=== PATIENT | male | born 1980 | race Caucasian/White ===

== ENCOUNTER 2018-12-28 17:04 | Emergency (ER) | payer OTHER ==
[~2018-12-28] VITALS: Ht 180.3 cm; Wt 93.0 kg
[2018-12-28] MEDS ORDERED: IV NORMAL SALINE 1,000ML 1,000 ML IV SCH (17:53)
--- NOTE | 2018-12-28 17:58 | PHYS DOC ---
Past History Past Medical History: No Pertinent History (ALEXANDRIACHRISTIANO ESPINOZA) Past Surgical History: Other Additional Past Surgical Histo: vasectomy (CARTLONRAYMONDCHRISTIANO DO) Smoking: Cigarettes, Less than 1pk/day Drug Use: None (BUCKALESHALUIS ANDRADEWILFRIDO ESPINOZA) Adult General Chief Complaint Chief Complaint: ABDOMINAL PAIN HPI HPI Patient is a 38-year-old male presents with lower abdominal pain and dysuria th at started yesterday. He has a maximum temperature of 100.7. No relief with home medicines. Pain radiates to both flanks. No blood in the urine. No increased urgency or frequency. He has had this 3 previous times without any definitive diagnosis being made. One time he was placed on antibiotics. Denies any urethral discharge. Denies any testicular pain.[] (CHRISTIANO IBRAHIM ) Review of Systems Review of Systems Constitutional: Denies fever or chills [] Eyes: Denies change in visual acuity, redness, or eye pain [] HENT: Denies nasal congestion or sore throat [] Respiratory: Denies cough or shortness of breath [] Cardiovascular: No additional information not addressed in HPI [] GI: Denies nausea, vomiting, bloody stools or diarrhea, see history of present illness [] : See history of present illness[] Musculoskeletal: Denies back pain or joint pain [] Integument: Denies rash or skin lesions [] Neurologic: Denies headache, focal weakness or sensory changes [] Endocrine: Denies polyuria or polydipsia [] All other systems were reviewed and found to be within normal limits, except as documented in this note. (CHRISTIANO IBRAHIM ) Physical Exam Physical Exam Constitutional: Well developed, well nourished, no acute distress, non-toxic appearance. [] HENT: Normocephalic, atraumatic, bilateral external ears normal, oropharynx moist, no oral exudates, nose normal. [] Eyes: PERRLA, EOMI, conjunctiva normal, no discharge. [] Neck: Normal range of motion, no tenderness, supple, no stridor. [] Cardiovascular:Heart rate regular rhythm, no murmur [] Lungs & Thorax: Bilateral breath sounds clear to auscultation [] Abdomen: Bowel sounds normal, soft, mild lower abdominal tenderness without any rebound, no guarding, no rigidity, able to sit up and lie back without any difficulty, no masses, no pulsatile masses. [] Skin: Warm, dry, no erythema, no rash. [] Back: No tenderness, no CVA tenderness. [] Extremities: No tenderness, no cyanosis, no clubbing, ROM intact, no edema. [] Neurologic: Alert and oriented X 3, normal motor function, normal sensory function, no focal deficits noted. [] Psychologic: Affect normal, judgement normal, mood normal. [] (ALEXANDRIA,CHRISTIANO DO) EKG EKG [] ([facility]) Radiology/Procedures Radiology/Procedures [] ([facility],CHRISTIANO DO) Impressions: PROCEDURE: CT ABD PELV W/ IV CONTRST ONLY CT abdomen pelvis with contrast dated 12/28/2018. No comparison available. CLINICAL INDICATION: Lower abdominal pain. TECHNIQUE: Per contiguous axial imaging of the abdomen and pelvis performed after the administration of 75 cc Omnipaque 300. One or more of the following individualized dose reduction techniques were utilized for this examination: 1. Automated exposure control 2. Adjustment of the mA and/or kV according to patient size 3. Use of iterative reconstruction technique. FINDINGS: Limited images of lung bases show dependent opacity in the lower lobes, likely atelectasis. Heart size within normal limits. No pleural or pericardial effusion. Liver and spleen are homogeneous. No focal hepatic mass. Biliary tree normal in caliber. Gallbladder unremarkable. Pancreas, adrenal glands and kidneys are unremarkable. No hydronephrosis. Unopacified GI tract normal in caliber and contour. Focal area of wall thickening involving the sigmoid colon with adjacent inflammatory changes. There are diverticula in the region. Possible tiny bubbles of gas along the inferior margin of the inflamed colon best seen on coronal images 20 through 22. No peridiverticular abscess. GI tract otherwise unremarkable. Appendix normal in caliber. Abdominal aorta normal in caliber. No lymphadenopathy. Images of pelvis show nondistended urinary bladder. Prostate gland normal in size. No free fluid. No pelvic adenopathy. Bone windows show no acute findings. Mild multilevel spondylosis. IMPRESSION: 1. Acute sigmoid diverticulitis. There are couple small bubbles of gas along the inferior margin of the inflamed colon which could represent early microperforation. No evidence of abscess. 2. Otherwise no significant abnormality. Electronically signed by: Raghu Paul MD (12/28/2018 6:56 PM) [facility] (ISIAH FONSECA Jr., DO) Course & Med Decision Making Course & Med Decision Making Pertinent Labs and Imaging studies reviewed. (See chart for details) ED course: Patient arrived, was placed in bed, and tolerated exam well. Patient care was endorsed to the nighttime physician at 1800 with laboratory testing and imaging pending.[] (CHRISTIANO IBRAHIM DO) Course & Med Decision Making Patient care was accepted from previous ER doctor at 6 PM. At the time of his departure, lab work and CT were pending. CT is returned with findings of acute sigmoid diverticulitis with suspected microperforation. I have discussed the case with Dr. Pelaez and he will accept patient care at [facility]. Surgery, with Dr. Mclean, has also been consulted on this patient. (ISIAH FONSECA Jr., DO) Dragon Disclaimer Dragon Disclaimer This electronic medical record was generated, in whole or in part, using a voice recognition dictation system. (CHRISTIANO IBRAHIM DO) Departure Departure: Impression: Primary Impression: Diverticulitis of large intestine with perforation Disposition: XFER SHT-TRM HOSP Condition: IMPROVED Referrals: PCP,NO (PCP) Problem Qualifiers Primary Impression: Diverticulitis of large intestine with perforation Diverticulitis bleeding: without bleeding Qualified Codes: K57.20 - Diverticulitis of large intestine with perforation and abscess without bleeding CHRISTIANO IBRAHIM DO Dec 28, 2018 17:58 ISIAH FONSECA Jr., DO Dec 28, 2018 19:08
[2018-12-28] MEDS ORDERED: KETOROLAC 30 MG/ML VIAL. IV ONE (18:00)
[2018-12-28 18:24] LABS: BASO # 0.1 x10^3/uL (0.0-0.2); BASO % 1 % (0-3); EOS # 0.2 x10^3/uL (0.0-0.7); EOS % 1 % (0-3); HEMATOCRIT 46.9 % (39.0-53.0); HEMOGLOBIN 16.2 g/dL (13.0-17.5); LYMPH % 13 % (24-48); MEAN CORPUSCULAR HEMOGLOBIN 31 pg (25-35); MEAN CORPUSCULAR HGB CONC 35 g/dL (31-37); MEAN CORPUSCULAR VOLUME 90 fL (79-100); MONO % 6 % (0-9); NEUT # 11.9 x10^3uL (1.8-7.7); NEUT % 79 % (31-73); PLATELET COUNT 294 x10^3/uL (140-400); RED BLOOD COUNT 5.24 x10^6/uL (4.30-5.70); RED CELL DISTRIBUTION WIDTH 12.6 % (11.5-14.5); WHITE BLOOD COUNT 15.1 x10^3/uL (4.0-11.0)
[2018-12-28] MEDS ORDERED: IOHEXOL 300 MG/ML 75 ML VIAL. IV ONE (18:30)
[2018-12-28 18:41] LABS: ALBUMIN 3.7 g/dL (3.4-5.0); ALBUMIN/GLOBULIN RATIO 0.9 (1.0-1.7); CREATININE 1.2 mg/dL (0.7-1.3); GFR 67.8; POTASSIUM 3.5 mmol/L (3.5-5.1); TOTAL BILIRUBIN 1.2 mg/dL (0.2-1.0); TOTAL PROTEIN 7.7 g/dL (6.4-8.2)
[2018-12-28 18:41] LABS: BILIRUBIN,URINE NEG (NEG); CLARITY,URINE CLEAR; COLOR,URINE YELLOW; GLUCOSE,URINE NEG (NEG); NITRITE,URINE NEG (NEG); RBC,URINE 0 /HPF (0-2); UROBILINOGEN,URINE 0.2 mg/dL (0.2 mg/dL)
[2018-12-28 18:42] LABS: BACTERIA,URINE 0 /HPF (0-FEW); WBC,URINE OCC /HPF (0-4)
--- NOTE | 2018-12-28 18:59 | RAD ---
CT abdomen pelvis with contrast dated 12/28/2018. No comparison available. CLINICAL INDICATION: Lower abdominal pain. TECHNIQUE: Per contiguous axial imaging of the abdomen and pelvis performed after the administration of 75 cc Omnipaque 300. One or more of the following individualized dose reduction techniques were utilized for this examination: 1. Automated exposure control 2. Adjustment of the mA and/or kV according to patient size 3. Use of iterative reconstruction technique. FINDINGS: Limited images of lung bases show dependent opacity in the lower lobes, likely atelectasis. Heart size within normal limits. No pleural or pericardial effusion. Liver and spleen are homogeneous. No focal hepatic mass. Biliary tree normal in caliber. Gallbladder unremarkable. Pancreas, adrenal glands and kidneys are unremarkable. No hydronephrosis. Unopacified GI tract normal in caliber and contour. Focal area of wall thickening involving the sigmoid colon with adjacent inflammatory changes. There are diverticula in the region. Possible tiny bubbles of gas along the inferior margin of the inflamed colon best seen on coronal images 20 through 22. No peridiverticular abscess. GI tract otherwise unremarkable. Appendix normal in caliber. Abdominal aorta normal in caliber. No lymphadenopathy. Images of pelvis show nondistended urinary bladder. Prostate gland normal in size. No free fluid. No pelvic adenopathy. Bone windows show no acute findings. Mild multilevel spondylosis. IMPRESSION: 1. Acute sigmoid diverticulitis. There are couple small bubbles of gas along the inferior margin of the inflamed colon which could represent early microperforation. No evidence of abscess. 2. Otherwise no significant abnormality. Electronically signed by: Raghu Paul MD (12/28/2018 6:56 PM) [facility]
[2018-12-28 19:32] LABS: % LYMPHS 14 % (24-48); % MONOS 5 % (0-10); % SEGS 81 % (35-66)
[2018-12-28] MEDS ORDERED: PIPERACILLIN/TAZOBACTAM 4.5 GM VIAL IV ONE (19:33)
[2018-12-28 19:34] LABS: ANISOCYTOSIS SLIGHT; PLT ESTIMATE ADEQUATE (ADEQUATE)
[2018-12-28] MEDS ORDERED: IV NORMAL SALINE 50ML 50 ML ONE (19:36)
[2018-12-28] MEDS ORDERED: PIPERACILLIN/TAZOBACTAM 4.5 GM in IV NORMAL SALINE 50ML 50 ML IV ONE (20:00)
[2018-12-28 22:44] VITALS: BP 118/67
== END 2018-12-28 23:23 | disposition short-term general hospital (02) ==
LOC: ER 17:04
DX: K57.20 Diverticulitis of large intestine with perforation and abscess without bleeding (principal); F17.210 Nicotine dependence, cigarettes, uncomplicated
CPT/HCPCS: 36415; 74177; 80053; 81001; 83690; 85007; 85025; 96365; 96375; 99285; J1885; J2543; Q9967; J7030

== ENCOUNTER 2019-06-19 06:44 | Emergency (ER) | payer OTHER ==
[~2019-06-19] VITALS: Ht 182.9 cm; Wt 90.0 kg
[2019-06-19 06:44] VITALS: BP 117/77
--- NOTE | 2019-06-19 07:03 | PHYS DOC ---
Past History Past Medical History: No Pertinent History Past Surgical History: No Surgical History Additional Past Surgical Histo: vasectomy Smoking: Cigarettes, Less than 1pk/day Alcohol Use: None Drug Use: None Adult General Chief Complaint Chief Complaint: lower abdominal pain [facility] HPI Patient is a 38-year-old male who presented to ER today for evaluation of lower abdominal pain, sharp and crampy in nature started last night. Patient denies any nausea vomiting. No fever, no diarrhea. Patient patient has a history of diverticulitis, was diagnosed last year. Patient had a colonoscopy about [address] ZAC Ascencio. Patient denies any blood in his stool. Patient said this pain is worse than before. Patient denies any urinary symptoms. Patient denies any blood in urine. Patient denies any frequent or painful urination. Patient denies any penile discharge. Review of Systems Review of Systems Constitutional: Denies fever or chills [] Eyes: Denies change in visual acuity, redness, or eye pain [] HENT: Denies nasal congestion or sore throat [] Respiratory: Denies cough or shortness of breath [] Cardiovascular: No additional information not addressed in HPI [] GI: Positive for abdominal pain, No nausea, vomiting, bloody stools or diarrhea [] : Denies dysuria or hematuria [] Musculoskeletal: Denies back pain or joint pain [] Integument: Denies rash or skin lesions [] Neurologic: Denies headache, focal weakness or sensory changes [] Endocrine: Denies polyuria or polydipsia [] All other systems were reviewed and found to be within normal limits, except as documented in this note. Allergies Allergies Allergies Coded Allergies Type Severity Reaction Last Updated Verified No Known Drug Allergies 12/28/18 No Physical Exam Physical Exam Constitutional: Well developed, well nourished, no acute distress, non-toxic appearance. [] HENT: Normocephalic, atraumatic, bilateral external ears normal, oropharynx moist, no oral exudates, nose normal. [] Eyes: PERRLA, EOMI, conjunctiva normal, no discharge. [] Neck: Normal range of motion, no tenderness, supple, no stridor. [] Cardiovascular:Heart rate regular rhythm, no murmur [] Lungs & Thorax: Bilateral breath sounds clear to auscultation [] Abdomen: Bowel sounds normal, soft, There is tenderness at the suprapubic area, no rebound, no guarding, no masses, no pulsatile masses. [] Skin: Warm, dry, no erythema, no rash. [] Back: No tenderness, no CVA tenderness. [] Extremities: No tenderness, no cyanosis, no clubbing, ROM intact, no edema. [] Neurologic: Alert and oriented X 3, normal motor function, normal sensory function, no focal deficits noted. [] Psychologic: Affect normal, judgement normal, mood normal. [] EKG EKG [] Radiology/Procedures Radiology/Procedures [][address] [address] IMAGING REPORT Signed PATIENT: HUMA DUENAS ACCOUNT: [id number] : 1980 LOCATION: ER AGE: 38 SEX: M EXAM STATUS: REG ER ORD. PHYSICIAN: FLORENTIN CAPONE DO REASON: lower abdominal pain, history of diverticulitis PROCEDURE: CT ABD PELV W/ IV CONTRST ONLY CT abdomen and pelvis with contrast PQRS statement: CT scans at this facility use dose reduction including either automated exposure control, iterative reconstructions, and /or weight based radiation dosing via mA and kV modification when appropriate to reduce radiation dose to as low as reasonably achievable. Contrast: 75 mL Omnipaque 300 intravenous contrast. HISTORY: Lower abdominal pain, history of diverticulitis. COMPARISON: CT abdomen and pelvis December 28, 2018. Abdomen findings: Left hepatic lobe subcentimeter hypodense lesion measuring 5 mm to small characterize due to volume averaging is indeterminate, stable favoring a benign lesion. Kidneys, adrenals, pancreas, spleen and gallbladder are unremarkable. No bowel obstruction. Appendix is negative. Sigmoid diverticuli and segmental wall thickening for length of approximately 10 cm with luminal narrowing and surrounding edema, no extraluminal gas to localize a site of perforation and no abscess evident. No abdominal fluid. No enlarged adenopathy. Bones are unremarkable. Lung bases unremarkable. Pelvis findings: Bladder, prostate, rectum and bones are unremarkable. No pelvic fluid or fluid collection. No adenopathy. IMPRESSION: 1. Segmental prominent wall thickening and surrounding edema of the sigmoid colon associated with diverticuli most likely diverticulitis. Given that this has persisted or recurred since e the prior study December 2018, a colonic malignancy with superimposed inflammation is not excluded. 2. Appendix is negative. Electronically signed by: Jadiel Kaba MD (06/19/2019 7:41 AM) [id number] DICTATED AND SIGNED BY: JADIEL KABA MD DATE: 06/19/19 0741 CC: PCP,UNKNOWN; FLORENTIN CAPONE DO ~ Course & Med Decision Making Course & Med Decision Making Pertinent Labs and Imaging studies reviewed. (See chart for details) Differential diagnosis includes, diverticulitis, kidney stone, appendicitis, ulcerative colitis, Crohn disease, bowel obstruction, bladder infection, prostatitis. CT scan and lab work today show patient has acute diverticulitis, there is no abscess, there is no perforation. Patient felt much better, he will go home for outpatient treatment. Patient will be discharged home, he is instructed follow-up with his GI doctor next week. Patient is amenable to plan of care. Dragon Disclaimer Dragon Disclaimer This electronic medical record was generated, in whole or in part, using a voice recognition dictation system. Departure Departure: Impression: Primary Impression: Diverticulitis Disposition: HOME, SELF-CARE Condition: STABLE Referrals: AMILCAR ASCENCIO MD please follow up with your GI DOCTOR NEXT WEEK. Patient Instructions: Diverticulitis Additional Instructions: Thank you for visiting our Emergency Department. We appreciate you trusting us with your care. If any additional problems come up don't hesitate to return to visit us. Please follow up with your primary care provider so they can plan additional care if needed and know about the problem that you had. If symptoms worsen come back to the Emergency Department. Any concerning symptoms that start such as chest pain, shortness of air, weakness or numbness on one side of the body, running high fevers or any other concerning symptoms return to the ER. Scripts Hydrocodone Bit/Acetaminophen (NORCO 5-325 TABLET) 1 Each Tablet 1 TAB PO PRN Q6HRS PRN for PAIN, #12 TAB 0 Refills Prov: FLORENTIN CAPONE DO 3/5/20 Metronidazole (FLAGYL) 500 Mg Tablet 1 TAB PO TID for DIVERTICULITIS for 10 Days, #30 TAB Prov: FLORENTIN CAPONE DO 3/5/20 Ciprofloxacin Hcl (CIPRO) 500 Mg Tablet 1 TAB PO BID for DIVERTICULITIS for 10 Days, #20 TAB 0 Refills Prov: FLORENTIN CAPONE DO 06/19/19 FLORENTIN CAPONE DO Jun 19, 2019 07:03
[2019-06-19] MEDS: IV NORMAL SALINE 1,000ML 1,000 ML IV SCH (07:11)
[2019-06-19] MEDS: MORPHINE SULFATE 4 MG/ML DISP.SYRIN. IV ONE (07:11)
[2019-06-19] MEDS: ONDANSETRON PF 4 MG/2 ML VIAL. IVP ONE (07:12)
[2019-06-19] MEDS: IOHEXOL 300 MG/ML 75 ML VIAL. IV ONE (07:16)
[2019-06-19 07:18] LABS: BASO # 0.1 x10^3/uL (0.0-0.2); BASO % 1 % (0-3); EOS # 0.5 x10^3/uL (0.0-0.7); EOS % 4 % (0-3); HEMATOCRIT 46.1 % (39.0-53.0); HEMOGLOBIN 15.9 g/dL (13.0-17.5); LYMPH # 1.9 x10^3/uL (1.0-4.8); LYMPH % 15 % (24-48); MEAN CORPUSCULAR HEMOGLOBIN 31 pg (25-35); MEAN CORPUSCULAR HGB CONC 35 g/dL (31-37); MEAN CORPUSCULAR VOLUME 89 fL (79-100); MONO # 0.8 x10^3/uL (0.0-1.1); MONO % 6 % (0-9); NEUT # 9.5 x10^3uL (1.8-7.7); NEUT % 75 % (31-73); PLATELET COUNT 292 x10^3/uL (140-400); RED BLOOD COUNT 5.21 x10^6/uL (4.30-5.70); RED CELL DISTRIBUTION WIDTH 12.9 % (11.5-14.5); WHITE BLOOD COUNT 12.8 x10^3/uL (4.0-11.0)
[2019-06-19 07:22] LABS: CALCIUM 9.1 mg/dL (8.5-10.1); GFR 83.6; POTASSIUM 3.8 mmol/L (3.5-5.1)
[2019-06-19 07:28] LABS: ALBUMIN 3.8 g/dL (3.4-5.0); ALBUMIN/GLOBULIN RATIO 1.1 (1.0-1.7); TOTAL BILIRUBIN 0.7 mg/dL (0.2-1.0); TOTAL PROTEIN 7.3 g/dL (6.4-8.2)
--- NOTE | 2019-06-19 07:44 | RAD ---
CT abdomen and pelvis with contrast PQRS statement: CT scans at this facility use dose reduction including either automated exposure control, iterative reconstructions, and /or weight based radiation dosing via mA and kV modification when appropriate to reduce radiation dose to as low as reasonably achievable. Contrast: 75 mL Omnipaque 300 intravenous contrast. HISTORY: Lower abdominal pain, history of diverticulitis. COMPARISON: CT abdomen and pelvis December 28, 2018. Abdomen findings: Left hepatic lobe subcentimeter hypodense lesion measuring 5 mm to small characterize due to volume averaging is indeterminate, stable favoring a benign lesion. Kidneys, adrenals, pancreas, spleen and gallbladder are unremarkable. No bowel obstruction. Appendix is negative. Sigmoid diverticuli and segmental wall thickening for length of approximately 10 cm with luminal narrowing and surrounding edema, no extraluminal gas to localize a site of perforation and no abscess evident. No abdominal fluid. No enlarged adenopathy. Bones are unremarkable. Lung bases unremarkable. Pelvis findings: Bladder, prostate, rectum and bones are unremarkable. No pelvic fluid or fluid collection. No adenopathy. IMPRESSION: 1. Segmental prominent wall thickening and surrounding edema of the sigmoid colon associated with diverticuli most likely diverticulitis. Given that this has persisted or recurred since e the prior study December 2018, a colonic malignancy with superimposed inflammation is not excluded. 2. Appendix is negative. Electronically signed by: Alphonso Kaba MD (06/19/2019 7:41 AM) [id number]
[2019-06-19] MEDS ORDERED: CIPR500T94 PO (08:17)
[2019-06-19] MEDS ORDERED: HYDR-3165 PO (08:17)
[2019-06-19] MEDS ORDERED: METR500T PO (08:17)
[2019-06-19] MEDS: metroNIDAZOLE 500 MG TABLET PO ONE (08:29)
[2019-06-19] MEDS: CIPROFLOXACIN HCL 500 MG TABLET PO ONE (08:29)
== END 2019-06-19 08:36 | disposition home or self-care (01) ==
LOC: ER 06:44
DX: K57.92 Diverticulitis of intestine, part unspecified, without perforation or abscess without bleeding (principal); F17.210 Nicotine dependence, cigarettes, uncomplicated
CPT/HCPCS: 36415; 74177; 80053; 83690; 85025; 96374; 96375; 99285; J2270; J2405; Q9967; J7030

== ENCOUNTER 2021-01-07 11:09 | Emergency (ER) | payer OTHER ==
[~2021-01-07] VITALS: Ht 182.9 cm; Wt 94.0 kg
[~2021-01-07 11:09] MED LIST: CIPR500T94 PO; HYDR-3165 PO; METR500T PO
[2021-01-07 11:22] VITALS: BP 126/94
--- NOTE | 2021-01-07 11:51 | PHYS DOC ---
Past History Past Medical History: Diverticulitis (CHERI VAZQUEZ APRN) Past Surgical History: No Surgical History Additional Past Surgical Histo: vasectomy (CHERI VAZQUEZ APRN) Smoking: Cigarettes, Less than 1pk/day Alcohol Use: None Drug Use: None (CHERI VAZQUEZ APRN) General Adult EDM: Chief Complaint: ABDOMINAL PAIN HPI: HPI: Patient is a 40-year-old male who presented to ER today for evaluation of lower abdominal pain that started 2 days ago. Patient denies any nausea vomiting. No fever, no diarrhea. Patient patient has a history of diverticulitis and diagnosed 2 years ago. Patient is history of hypothyroidism and diverticulitis. (CHERI VAZQUEZ APRN) Review of Systems: Review of Systems: ROS At least 10 ROS systems have been reviewed and are negative except as documented in the HPI. General: Negative except as outlined in HPI above. Skin: Negative except as outlined in HPI above. HEENT: Negative except as outlined in HPI above. Neck: Negative except as outlined in HPI above. Respiratory: Negative except as outlined in HPI above.. Cardiovascular: Negative except as outlined in HPI above. Abdomen: Negative except as outlined in HPI above. : Negative except as outlined in HPI above. Back/MSK: Negative except as outlined in HPI above. Neuro: Negative except as outlined in HPI above. Psych: Negative except as outlined in HPI above. (CHERI VAZQUEZ APRN) Allergies: Allergies: Allergies Coded Allergies Type Severity Reaction Last Updated Verified No Known Drug Allergies 12/28/18 No (CHERI VAZQUEZ APRN) Physical Exam: PE: Constitutional: Well developed, well nourished, no acute distress, non-toxic appearance. [] HENT: Normocephalic, atraumatic, bilateral external ears normal, oropharynx moist, no oral exudates, nose normal. [] Eyes: PERRLA, EOMI, conjunctiva normal, no discharge. [] Neck: Normal range of motion, no tenderness, supple, no stridor. [] Cardiovascular:Heart rate regular rhythm, no murmur [] Lungs & Thorax: Bilateral breath sounds clear to auscultation [] Abdomen: Bowel sounds normal, soft, lower abdominal tenderness Skin: Warm, dry, no erythema, no rash. [] Back: No tenderness, no CVA tenderness. [] Extremities: No tenderness, no cyanosis, no clubbing, ROM intact, no edema. [] Neurologic: Alert and oriented X 3, normal motor function, normal sensory function, no focal deficits noted. [] Psychologic: Affect normal, judgement normal, mood normal. [] (CHERI VAZQUEZ APRN) Current Patient Data: Vital Signs: Vital Signs Date Time Temp Pulse Resp B/P (MAP) Pulse Ox O2 Delivery O2 Flow Rate FiO2 01/07/21 11:22 98.6 90 16 126/94 (105) 99 Room Air (CHERI VAZQUEZ APRN) EKG: EKG: Sinus rhythm. Heart rate 80 bpm [] no signs of ST elevation or depression. Read by Dr. Palumbo. (CHERI VAZQUEZ APRN) Radiology/Procedures: Radiology/Procedures: []EXAM: Abdomen and pelvis CT without intravenous contrast. HISTORY: Pain. TECHNIQUE: Computed tomographic images of the abdomen and pelvis were obtained without contrast. Multiplanar reformatting was performed. *One or more of the following individualized dose reduction techniques were utilized for this examination: 1. Automated exposure control. 2. Adjustment of the mA and/or kV according to patient size. 3. Use of iterative reconstruction technique. COMPARISON: 06/19/2019. FINDINGS: Evaluation of the lower thorax is unremarkable. No hepatic lesion is seen. The gallbladder, pancreas, spleen and adrenal glands are unremarkable. No solid or cystic renal lesion or nephrolithiasis is seen. There is no hydronephrosis. There is no appendicitis. There is colonic diverticulosis. There is a short segment of wall thickening with extensive surrounding inflammatory stranding and trace fluid involving the proximal sigmoid colon, consistent with acute diverticulitis. No free air or drainable abscess is seen. The bladder is unremarkable. The aorta is normal in caliber. There are multiple prominent retroperitoneal lymph nodes. These are stable compared to the prior exam, favoring a physiologic or recurrent reactive in etiology. There is no suspicious osseous lesion. IMPRESSION: 1. Acute diverticulitis involving the proximal sigmoid colon. No free air or drainable abscess is seen. 2. Multiple stable prominent retroperitoneal lymph nodes. The greater than 1 year course of stability favors benignity. Electronically signed by: Mago Genao MD (01/07/2021 11:56 AM) [facility] (CHERI VAZQUEZ APRN) Heart Score: C/O Chest Pain: No Risk Factors: Risk Factors: DM, Current or recent (<one month) smoker, HTN, HLP, family history of CAD, obesity. Risk Scores: Score 0 - 3: 2.5% MACE over next 6 weeks - Discharge Home Score 4 - 6: 20.3% MACE over next 6 weeks - Admit for Clinical Observation Score 7 - 10: 72.7% MACE over next 6 weeks - Early Invasive Strategies (CHERI VAZQUEZ APRN) Course & Med Decision Making: Course & Med Decision Making Pertinent Labs and Imaging studies reviewed. (See chart for details) [] 40-year-old male presented ER with lower abdominal pain. Patient has history of diverticulitis. CT of abdomen and pelvis show acute diverticulitis. Patient sent home with prescription for hydrocodone for pain, Cipro, Flagyl. Patient should follow-up with PCP with further concerns. Return precautions given. Patient is appreciative and okay with discharge plan. Patient is hemodynamically stable upon disposition. (CHERI VAZQUEZ APRN) Dragon Disclaimer: Dragon Disclaimer: This electronic medical record was generated, in whole or in part, using a voice recognition dictation system. (CHERI VAZQUEZ APRN) Departure Departure: Impression: Primary Impression: Diverticulitis Disposition: HOME / SELF CARE / HOMELESS Condition: STABLE Referrals: HAZEL HERNDON (PCP) Patient Instructions: Diverticulitis, [id number] Additional Instructions: You were seen in the emergency room for lower abdominal pain CT of your abdomen showed diverticulitis. I am starting you on antibiotics. I am also sending home with some pain medication. Follow-up with your PCP with further concerns. Return to emergency room if you have worsening symptoms. EMERGENCY DEPARTMENT GENERAL DISCHARGE INSTRUCTIONS Thank you for coming to [facility] (ED) today and trusting us with you care. We trust that you had a positivie experience in our Emergency Department. If you wish to speak to the department management, you may call the director at [phone]. YOUR FOLLOW UP INSTRUCTIONS ARE FOLLOWS: 1. Do you have a private Doctor? If you do not have a private doctor, please ask for a resource list of physicians or clinics that may be able to assist you with follow up care. 2. The Emergency Physician has interpreted your x-rays. The X-Ray specialist will also review them. If there is a change in the findings, you will be notified in 48 hours when at all possible. 3. A lab test or culture has been done, your results will be reviewed and you will be notified if you need a change in treatment. ADDITIONAL INSTRUCTIONS AND INFORMATION: 1. Your care today has been supervised by a physician who is specially trained in emergency care. Many problems require more than one evaluation for a complete diagnosis and treatment. We recommend that you schedule your follow up appointment as recomme nded to ensure complete treatment of you illness or injury. If you are unable to obtain follow up care and continue to have a problem, or if your condition worsens, we recommend that you return to the ED. 2. We are not able to safely determine your condition over the phone nor are we able to give sound medical advice over the phone. For these safety reasons, if you call for medical advice we will ask you to come to the ED for further evaluation. 3. If you have any questions regarding these discharge instructions please call the ED at [phone]. SAFETY INFORMATION: In the interest of safety, wellness, and injury prevention; we encourage you to wear your sealbelt, if you smoke; quite smoking, and we encourage family to use a protective helmet for bicycling and other sporting events that present an increased risk for head injury. IF YOUR SYMPTOMS WORSEN OR NEW SYMPTOMS DEVELOP, OR YOU HAVE CONCERNS ABOUT YOUR CONDITION; OR IF YOUR CONDITION WORSENS WHILE YOU ARE WAITING FOR YOUR FOLLOW UP APPOINTMENT; EITHER CONTACT YOUR PRIMARY CARE DOCTOR, THE PHYSICIAN WHOSE NAME AND NUMBER YOU WERE GIVEN, OR RETURN TO THE ED IMMEDIATELY. Scripts Hydrocodone Bit/Acetaminophen (HYDROCODONE-APAP 5-325 ) 1 Each Tablet 1 TAB PO PRN Q6HRS PRN for PAIN for 3 Days, #12 TAB 0 Refills Prov: CHERI VAZQUEZ [employer]LECT[employer] INST[employer]ER 01/07/21 Ciprofloxacin Hcl (CIPRO) 500 Mg Tablet 1 TAB PO BID for diverticulitis for 10 Days, #20 TAB 0 Refills Prov: CHERI VAZQUEZ [employer]LECT[employer] INST[employer]ER 01/07/21 Metronidazole (FLAGYL) 500 Mg Tablet 1 TAB PO TID for diverticulitis for 10 Days, #30 TAB Prov: CHERI VAZQUEZ [employer]LECT[employer] INST[employer]ER 01/07/21 Attending Signature Attending Signature I have reviewed the PA/MARBLE CARVER's note and plan of care. I was available for consultation as needed during the patient's visit in the emergency department. I agree with the clinical impression, plan, and disposition. (AMILCAR PALUMBO DO) CHERI VAZQUEZ APRN Jan 07, 2021 11:51 AMILCAR PALUMBO DO Jan 07, 2021 21:29
--- NOTE | 2021-01-07 11:59 | RAD ---
EXAM: Abdomen and pelvis CT without intravenous contrast. HISTORY: Pain. TECHNIQUE: Computed tomographic images of the abdomen and pelvis were obtained without contrast. Mult iplanar reformatting was performed. *One or more of the following individualized dose reduction techniques were utilized for this examina tion: 1. Automated exposure control. 2. Adjustment of the mA and/or kV according to patient size. 3. Use of iterative reconstruction technique. COMPARISON: 06/19/2019. FINDINGS: Evaluation of the lower thorax is unremarkable. No hepatic lesion is seen. The gallbladder, pancreas, spleen and adrenal glands are unremarkable. No solid or cystic renal lesion or nephrolithi asis is seen. There is no hydronephrosis. There is no appendicitis. There is colonic diverticulosis. There is a short segment of wall thickenin g with extensive surrounding inflammatory stranding and trace fluid involving the proximal sigmoid co fidencio, consistent with acute diverticulitis. No free air or drainable abscess is seen. The bladder is unremarkable. The aorta is normal in caliber. There are multiple prominent retroperito federico lymph nodes. These are stable compared to the prior exam, favoring a physiologic or recurrent re active in etiology. There is no suspicious osseous lesion. IMPRESSION: 1. Acute diverticulitis involving the proximal sigmoid colon. No free air or drainable abscess is see n. 2. Multiple stable prominent retroperitoneal lymph nodes. The greater than 1 year course of stability favors benignity. Electronically signed by: Mago Genao MD (01/07/2021 11:56 AM) [facility]
[2021-01-07 12:30] LABS: BASO # 0.1 x10^3/uL (0.0-0.2); BASO % 1 % (0-3); EOS # 0.2 x10^3/uL (0.0-0.7); EOS % 2 % (0-3); HEMATOCRIT 47.3 % (39.0-53.0); HEMOGLOBIN 16.4 g/dL (13.0-17.5); LYMPH # 1.5 x10^3/uL (1.0-4.8); LYMPH % 16 % (24-48); MEAN CORPUSCULAR HEMOGLOBIN 31 pg (25-35); MEAN CORPUSCULAR HGB CONC 35 g/dL (31-37); MEAN CORPUSCULAR VOLUME 91 fL (79-100); MONO # 0.5 x10^3/uL (0.0-1.1); MONO % 6 % (0-9); NEUT # 7.4 x10^3uL (1.8-7.7); NEUT % 76 % (31-73); PLATELET COUNT 353 x10^3/uL (140-400); RED BLOOD COUNT 5.23 x10^6/uL (4.30-5.70); WHITE BLOOD COUNT 9.7 x10^3/uL (4.0-11.0)
[2021-01-07] MEDS ORDERED: METR500T PO (12:32)
[2021-01-07] MEDS ORDERED: CIPR500T94 PO (12:32)
[2021-01-07] MEDS ORDERED: HYDR-2155 PO (12:32)
[2021-01-07 12:42] LABS: CALCIUM 9.6 mg/dL (8.5-10.1); GFR 82.8; POTASSIUM 3.7 mmol/L (3.5-5.1)
[2021-01-07 12:57] LABS: ALBUMIN 3.8 g/dL (3.4-5.0); ALBUMIN/GLOBULIN RATIO 0.9 (1.0-1.7); TOTAL PROTEIN 8.1 g/dL (6.4-8.2)
--- NOTE | 2021-01-08 02:45 | EKG ---
[address] [address] Test Date: 2021-01-07 Test Time: 11:46:07 Pat Name: HUMA DUENAS Department: Room: Gender: M Theology Professor: EVE : 1980 Requested By: CHERI VAZQUEZ Order Number: [id number] Reading MD: Measurements Intervals [place] Rate: 80 P: 34 MS: 130 QRS: 36 QRSD: 80 T: 49 QT: 342 QTc: 398 Interpretive Statements SINUS RHYTHM NORMAL ECG RI6.02 No previous ECG available for comparison
== END 2021-01-07 13:08 | disposition home or self-care (01) ==
LOC: ER 11:09
DX: K57.92 Diverticulitis of intestine, part unspecified, without perforation or abscess without bleeding (principal); F17.210 Nicotine dependence, cigarettes, uncomplicated
CPT/HCPCS: 36415; 74176; 80053; 83690; 85025; 93005; 99285-25

== ENCOUNTER 2021-06-30 10:22 | Emergency (ER) | payer OTHER ==
[~2021-06-30] VITALS: Ht 182.9 cm; Wt 94.0 kg
[~2021-06-30 10:22] MED LIST changes: +HYDR-2155 PO
[2021-06-30 10:29] VITALS: BP 146/94
[2021-06-30] MEDS ORDERED: METR-34 PO (11:11)
[2021-06-30] MEDS ORDERED: TRAM-48 PO (11:11)
[2021-06-30] MEDS ORDERED: CIPR500T94 PO (11:11)
--- NOTE | 2021-06-30 11:12 | PHYS DOC ---
Past History Past Medical History: Diverticulitis Past Surgical History: No Surgical History Additional Past Surgical Histo: vasectomy Smoking: Cigarettes, Less than 1pk/day Alcohol Use: None Drug Use: None General Adult EDM: Chief Complaint: ABDOMINAL PAIN HPI: HPI: 41-year-old male with a past medical history of diverticulitis presents with a chief complaint of lower abdominal discomfort. Patient states pain started early this morning. Patient states symptoms are consistent with his diverticulitis. Patient's pain is left lower quadrant suprapubic region. Patient denies any associated nausea vomiting or diarrhea. Patient states current symptoms are similar to all previous episodes of his acute diverticulitis. Patient has not required any [id number]-pho-palpldd pain medications. Patient states he is usually prescribed 2 different antibiotics that he takes for several days. On exam patient's abdomen is soft without rebound or guarding. Review of Systems: Review of Systems: Constitutional: Denies fever or chills Eyes: Denies change in visual acuity HENT: Denies nasal congestion or sore throat Respiratory: Denies cough or shortness of breath Cardiovascular: Denies chest pain or edema GI: Positive abdominal pain, denies nausea, vomiting, bloody stools or diarrhea : Denies dysuria Musculoskeletal: Denies back pain or joint pain Integument: Denies rash Neurologic: Denies headache, focal weakness or sensory changes Endocrine: Denies polyuria or polydipsia Lymphatic: Denies swollen glands Psychiatric: Denies depression or anxiety Allergies: Allergies: Allergies Coded Allergies Type Severity Reaction Last Updated Verified No Known Drug Allergies 12/28/18 No Physical Exam: PE: Constitutional: Well developed, well nourished, no acute distress, non-toxic appearance. [] HENT: Normocephalic, atraumatic, bilateral external ears normal, oropharynx moist, no oral exudates, nose normal. [] Eyes: PERRLA, EOMI, conjunctiva normal, no discharge. [] Neck: Normal range of motion, no tenderness, supple, no stridor. [] Cardiovascular:Heart rate regular rhythm, no murmur [] Lungs & Thorax: Bilateral breath sounds clear to auscultation [] Abdomen: Bowel sounds normal, soft, , no masses, no pulsatile masses. [Location of pain and suprapubic left lower quadrant no rebound or guarding no tenderness to deep palpation of the right lower quadrant Skin: Warm, dry, no erythema, no rash. [] Back: No tenderness, no CVA tenderness. [] Extremities: No tenderness, no cyanosis, no clubbing, ROM intact, no edema. [] Neurologic: Alert and oriented X 3, normal motor function, normal sensory function, no focal deficits noted. [] Psychologic: Affect normal, judgement normal, mood normal. [] Current Patient Data: Vital Signs: Vital Signs Date Time Temp Pulse Resp B/P (MAP) Pulse Ox O2 Delivery O2 Flow Rate FiO2 06/30/21 10:29 98.4 77 16 146/94 (111) 99 Room Air EKG: EKG: [] Radiology/Procedures: Radiology/Procedures: [] Heart Score: C/O Chest Pain: N/A Risk Factors: Risk Factors: DM, Current or recent (<one month) smoker, HTN, HLP, family history of CAD, obesity. Risk Scores: Score 0 - 3: 2.5% MACE over next 6 weeks - Discharge Home Score 4 - 6: 20.3% MACE over next 6 weeks - Admit for Clinical Observation Score 7 - 10: 72.7% MACE over next 6 weeks - Early Invasive Strategies Course & Med Decision Making: Course & Med Decision Making Pertinent Labs and Imaging studies reviewed. (See chart for details) [] Based upon history and physical exam will not order any labs or radiologic imaging. Patient with previous history of diverticulitis and states all current symptoms are consistent with an acute flare. Patient will be treated with Cipro Flagyl. Advised to take [id number] Tylenol and ibuprofen. Will prescribe patient Ultram 10 tablets. Maribel Disclaimer: Maribel Disclaimer: This electronic medical record was generated, in whole or in part, using a voice recognition dictation system. Departure Departure: Impression: Primary Impression: Diverticulitis Disposition: HOME / SELF CARE / HOMELESS Condition: STABLE Referrals: HAZEL HERNDON (PCP) Patient Instructions: Diverticulitis Scripts Tramadol Hcl (ULTRAM) 50 Mg Tablet 1 TAB PO PRN Q6HRS PRN for pain MDD 4 Tablet(s) for 7 Days, #10 TAB 0 Refills Prov: LIBRADO WHITEHEAD DO 06/30/21 Metronidazole (METRONIDAZOLE) 500 Mg Tablet 1 TAB PO TID for 10 Days, #30 TAB 0 Refills Prov: LIBRADO WHITEHEAD DO 06/30/21 Ciprofloxacin Hcl (CIPRO) 500 Mg Tablet 1 TAB PO BID for 10 Days, #20 TAB 0 Refills Prov: LIBRADO WHITEHEAD DO 06/30/21 LIBRADO WHITEHEAD DO Jun 30, 2021 11:12
== END 2021-06-30 11:28 | disposition home or self-care (01) ==
LOC: ER 10:22
DX: K57.92 Diverticulitis of intestine, part unspecified, without perforation or abscess without bleeding (principal); F17.210 Nicotine dependence, cigarettes, uncomplicated
CPT/HCPCS: 99283

== ENCOUNTER 2021-07-02 22:46 | Emergency (ER) | payer OTHER ==
[~2021-07-02] VITALS: Ht 182.9 cm; Wt 95.1 kg
[~2021-07-02 22:46] MED LIST changes: +METR-34 PO; +TRAM-48 PO
[2021-07-02] MEDS ORDERED: IOHEXOL 300 MG/ML 75 ML VIAL. IV ONE (23:00)
[2021-07-02] MEDS ORDERED: IV RINGERS SOLUTION,LACTATED 1,000 ML IV ONE (23:00)
[2021-07-02] MEDS ORDERED: ONDANSETRON PF 4 MG/2 ML VIAL. IVP ONE (23:00)
[2021-07-02] MEDS ORDERED: CONTRAST GIVEN. MC PRN (23:15)
[2021-07-02 23:38] LABS: BASO # 0.1 x10^3/uL (0.0-0.2); BASO % 1 % (0-3); EOS # 0.2 x10^3/uL (0.0-0.7); EOS % 2 % (0-3); HEMATOCRIT 47.7 % (39.0-53.0); HEMOGLOBIN 16.6 g/dL (13.0-17.5); LYMPH # 1.7 x10^3/uL (1.0-4.8); LYMPH % 17 % (24-48); MEAN CORPUSCULAR HEMOGLOBIN 32 pg (25-35); MEAN CORPUSCULAR HGB CONC 35 g/dL (31-37); MEAN CORPUSCULAR VOLUME 91 fL (79-100); MONO # 0.6 x10^3/uL (0.0-1.1); MONO % 6 % (0-9); NEUT # 7.6 x10^3uL (1.8-7.7); NEUT % 74 % (31-73); PLATELET COUNT 308 x10^3/uL (140-400); RED BLOOD COUNT 5.25 x10^6/uL (4.30-5.70); RED CELL DISTRIBUTION WIDTH 12.7 % (11.5-14.5); WHITE BLOOD COUNT 10.2 x10^3/uL (4.0-11.0)
--- NOTE | 2021-07-02 23:38 | RAD ---
Exam: CT of abdomen and pelvis with contrast INDICATION: Left lower quadrant pain, diverticulitis TECHNIQUE: Sequential axial images through the abdomen and pelvis obtained following the administrati on of 74 mL of Isovue-370 IV contrast. Sagittal and coronal reformatted images were reconstructed fro m the axial data and reviewed. Exposure: One or more of the following in the visualized dose reduction techniques were utilized for this examination: 1. Automated exposure control 2. Adjustment of the MA and/or KV according to patient size 3. Use of iterative of reconstructive technique Comparisons: 01/07/2021 FINDINGS: Heart size is normal. No pericardial effusion. Visualized lung bases are clear. No pleural effusion. Liver, spleen, pancreas, gallbladder and adrenals are unremarkable. No perinephric inflammation or hydronephrosis. No renal or ureteral calculi are identified. Bladder is partially distended and not well evaluated. Prostate is not enlarged. There is a focal area of wall thickening and adjacent inflammation at the distal descending colon. Re mainder large and small bowel are unremarkable. No free intra-abdominal air or fluid. No obstruction. Abdominal aorta has normal course and caliber. Abdominal vasculature is patent. No enlarged intra-abdominal lymph nodes are identified. No suspicious osseous lesions or acute fractures. IMPRESSION: Focal area of wall thickening of the distal descending colon favored represent colitis may be infecti ous or inflammatory in etiology. Colonoscopy posttreatment to ensure no underlying neoplasm is recomm ended. No evidence for perforation or adjacent abscess. Electronically signed by: Junior Caro MD (07/02/2021 11:35 PM) [facility]
[2021-07-02 23:45] LABS: CALCIUM 9.4 mg/dL (8.5-10.1); CREATININE 1.3 mg/dL (0.7-1.3); GFR 60.8; POTASSIUM 3.3 mmol/L (3.5-5.1)
[2021-07-02 23:51] LABS: TOTAL BILIRUBIN 0.8 mg/dL (0.2-1.0); TOTAL PROTEIN 8.1 g/dL (6.4-8.2)
--- NOTE | 2021-07-02 23:54 | PHYS DOC ---
Past History Past Medical History: Diverticulitis Past Surgical History: No Surgical History Additional Past Surgical Histo: vasectomy Smoking: Cigarettes, Less than 1pk/day Alcohol Use: None Drug Use: None Adult General Chief Complaint Chief Complaint: NAUSEA/VOMITING/DIARRHEA HPI HPI Patient is a 41-year-old male who presents with a chief complaint of left lower quadrant pain has been going on several days. States he was diagnosed with diverticulitis a few days ago and started on antibiotics but did not get any pain or nausea medicine. States he is able to eat and drink but is having some discomfort intermittently, 5 out of 10, sharp in nature in his left lower quadrant. Denies any nausea, vomiting or diarrhea. Denies any fevers, chest pain, shortness of breath. States he has been taking ciprofloxacin twice a day and Flagyl 3 times a day. Review of Systems Review of Systems Review of systems otherwise unremarkable except noted in HPI Current Medications Current Medications Current Medications Medications (Trade) Dose Ordered Sig/Misael Start Time Stop Time Status Last Admin Dose Admin Fentanyl Citrate (Fentanyl 2ml Vial) 50 mcg 1X ONCE 07/02/21 23:00 07/02/21 23:01 DC 07/02/21 23:42 50 MCG Info (Do NOT chart on this entry -- for MONITORING) 1 each PRN DAILY PRN 07/02/21 23:15 07/04/21 23:14 Iohexol (Omnipaque 300 Mg/ml) 75 ml 1X ONCE 07/02/21 23:00 07/02/21 23:04 DC 07/02/21 23:22 75 ML Lactated Ringer's 1,000 ml @ 1,000 mls/hr 1X ONCE 07/02/21 23:00 07/02/21 23:59 07/02/21 23:43 1,000 MLS/HR Ondansetron HCl (Zofran) 4 mg 1X ONCE 07/02/21 23:00 07/02/21 23:01 DC 07/02/21 23:42 4 MG Allergies Allergies Allergies Coded Allergies Type Severity Reaction Last Updated Verified No Known Drug Allergies 12/28/18 No Physical Exam Physical Exam Constitutional: Well developed, well nourished, no acute distress, non-toxic appearance. [] HENT: Normocephalic, atraumatic, bilateral external ears normal, oropharynx moist, no oral exudates, nose normal. [] Eyes: conjunctiva normal, no discharge. [] Neck: Normal range of motion, no tenderness, supple, no stridor. [] Cardiovascular:Heart rate regular rhythm, no murmur [] Lungs & Thorax: Bilateral breath sounds clear to auscultation [] Abdomen: Bowel sounds normal, soft, no tenderness, no masses, no pulsatile masses. [] Skin: Warm, dry, no erythema, no rash. [] Back: No tenderness, no CVA tenderness. [] Extremities: No tenderness, no cyanosis, no clubbing, ROM intact, no edema. [] Neurologic: Alert and oriented X 3, normal motor function, normal sensory function, no focal deficits noted. [] Psychologic: Affect normal, judgement normal, mood normal. [] Current Patient Data Vital Signs Vital Signs Date Time Temp Pulse Resp B/P (MAP) Pulse Ox O2 Delivery O2 Flow Rate FiO2 07/02/21 23:42 16 Room Air 07/02/21 23:24 98.7 89 146/94 (111) 98 Lab Results Laboratory Tests Test 07/02/21 23:20 White Blood Count 10.2 x10^3/uL (4.0-11.0) Red Blood Count 5.25 x10^6/uL (4.30-5.70) Hemoglobin 16.6 g/dL (13.0-17.5) Hematocrit 47.7 % (39.0-53.0) Mean Corpuscular Volume 91 fL (79-100) Mean Corpuscular Hemoglobin 32 pg (25-35) Mean Corpuscular Hemoglobin Concent 35 g/dL (31-37) Red Cell Distribution Width 12.7 % (11.5-14.5) Platelet Count 308 x10^3/uL (140-400) Neutrophils (%) (Auto) 74 % (31-73) H Lymphocytes (%) (Auto) 17 % (24-48) L Monocytes (%) (Auto) 6 % (0-9) Eosinophils (%) (Auto) 2 % (0-3) Basophils (%) (Auto) 1 % (0-3) Neutrophils # (Auto) 7.6 x10^3uL (1.8-7.7) Lymphocytes # (Auto) 1.7 x10^3/uL (1.0-4.8) Monocytes # (Auto) 0.6 x10^3/uL (0.0-1.1) Eosinophils # (Auto) 0.2 x10^3/uL (0.0-0.7) Basophils # (Auto) 0.1 x10^3/uL (0.0-0.2) EKG EKG [] Radiology/Procedures Radiology/Procedures [] Heart Score C/O Chest Pain: No Risk Factors: Risk Factors: DM, Current or recent (<one month) smoker, HTN, HLP, family history of CAD, obesity. Risk Scores: Risk Factors: DM, Current or recent (<one month) smoker, HTN, HLP, family history of CAD, obesity. Course & Med Decision Making Course & Med Decision Making Patient is a 41-year-old male with a recent diagnosis of diverticulitis who p resents with left lower quadrant discomfort Vital signs nonconcerning. Physical exam noted above. Given pain and nausea medicine in the ED. Laboratory analysis not concerning. CT notable for some colitis. Switch patient to Augmentin as he was complaining of taking that many pills daily Given some antiemetics and pain medicine for home for breakthrough. Advised on diet and hydration. Advised to follow-up on Sunday with primary care physician Gave return precautions to the ED. Patient grateful, verbalized understanding and agreed with plan of discharge. [] Dragon Disclaimer Dragon Disclaimer This electronic medical record was generated, in whole or in part, using a voice recognition dictation system. Departure Departure: Impression: Primary Impression: Colitis Disposition: HOME / SELF CARE / HOMELESS Condition: STABLE Referrals: HAZEL HERNDON (PCP) Patient Instructions: Colitis Additional Instructions: Thank you for coming into the emergency department tonight and allowing us to take care of you. Please read the attached information carefully go over things we discussed. Please adjust your diet and hydration as we discussed. Please start taking your Augmentin antibiotic 2 times daily as we discussed and stop taking the ciprofloxacin and Flagyl. Please take your nausea medicine every 6 hours as needed. You can take your prescription pain medicine every 6-8 hours as needed with your ibuprofen. Please follow-up on Sunday with your primary care physician update on ED visit and set up a follow-up visit. Please come back with new or concerning symptoms as we discussed. ELSA SILVA MD Jul 02, 2021 23:54
[2021-07-03] MEDS ORDERED: ONDANSETRON 4MG ODT 4TABLET STARTPACK. PO ONE
[2021-07-03] MEDS ORDERED: ACETAMINOPHEN/CODEINE 300/30MG 4TABLET STARTPACK. PO ONE
[2021-07-03] MEDS ORDERED: oxyCODONE/APAP 5/325 1 TAB TABLET PO ONE
[2021-07-03] MEDS ORDERED: AMOX1TAB11 PO (00:03)
[2021-07-03 00:17] VITALS: BP 143/88
== END 2021-07-03 00:16 | disposition home or self-care (01) ==
LOC: ER 22:46
DX: K52.9 Noninfective gastroenteritis and colitis, unspecified (principal); F17.210 Nicotine dependence, cigarettes, uncomplicated
CPT/HCPCS: 36415; 74177; 80053; 83690; 85025; 96361; 96374; 96375; 99285; J2405; J3010; J7120; Q0162; Q9967

== ENCOUNTER → 2021-08-17 | Day surgery (SDC) | payer OTHER ==
[~2021-08-17] MED LIST changes: +AMOX1TAB11 PO
== END | disposition home or self-care (01) ==
LOC: SURG 13:11
PROVIDERS: ATTEND Anesthesiology
DX: M54.12 Radiculopathy, cervical region (principal); G47.30 Sleep apnea, unspecified; M19.90 Unspecified osteoarthritis, unspecified site; M54.16 Radiculopathy, lumbar region; E07.9 Disorder of thyroid, unspecified; M51.36 Other intervertebral disc degeneration, lumbar region; M50.30 Other cervical disc degeneration, unspecified cervical region; K57.30 Diverticulosis of large intestine without perforation or abscess without bleeding; Z79.899 Other long term (current) drug therapy; Z98.890 Other specified postprocedural states; Z98.52 Vasectomy status
CPT/HCPCS: 99204; G0463

== ENCOUNTER 2021-09-11 09:56 | Emergency (ER) | payer OTHER ==
[~2021-09-11] VITALS: Ht 182.9 cm; Wt 95.5 kg
[2021-09-11 10:08] VITALS: BP 135/81
[2021-09-11] MEDS ORDERED: ORPHENADRINE CITRATE 60 MG/2 ML VIAL. IM ONE (10:15)
[2021-09-11] MEDS ORDERED: KETOROLAC 60 MG/2 ML VIAL. IM ONE (10:15)
--- NOTE | 2021-09-11 10:26 | PHYS DOC ---
Past History Past Medical History: Diverticulitis Past Surgical History: No Surgical History Additional Past Surgical Histo: vasectomy Smoking: Cigarettes, Less than 1pk/day Alcohol Use: None Drug Use: None General Adult EDM: Chief Complaint: BACK PAIN OR INJURY HPI: HPI: Patient is a 41-year-old male who presents to the emergency department today for bilateral low back pain that radiates down his right leg that started last night. He rates his pain 8 out of 10. No treatment prior to arrival. He reports a history of chronic back pain. He is scheduled for cortisone shot in his primary care providers on September 28. He denies any new injuries. He denies any loss of bowel or bladder. He reports that occasionally he does have a loss of sensation and tingling in his right foot. Review of Systems: Review of Systems: GI: See HPI : See HPI Musculoskeletal: See HPI Neurologic: See HPI Current Medications: Current Meds: Current Medications Medications (Trade) Dose Ordered Sig/Misael Start Time Stop Time Status Last Admin Dose Admin Ketorolac Tromethamine (Toradol Im) 60 mg 1X ONCE 09/11/21 10:15 09/11/21 10:23 DC Orphenadrine Citrate (Norflex) 60 mg 1X ONCE 09/11/21 10:15 09/11/21 10:16 Allergies: Allergies: Allergies Coded Allergies Type Severity Reaction Last Updated Verified No Known Drug Allergies 12/28/18 No Physical Exam: PE: Constitutional: Well developed, well nourished, no acute distress, non-toxic appearance. [] HENT: Normocephalic, atraumatic, bilateral external ears normal, oropharynx moist, no oral exudates, nose normal. [] Eyes: PERRL, EOMI, conjunctiva normal, no discharge. [] Neck: Normal range of motion, no bony spinal tenderness, no step-offs or deformities, supple, no stridor. [] Cardiovascular: Normal peripheral perfusion Lungs & Thorax: Normal work of breathing, no tachypnea Abdomen: Soft and flat Skin: Warm, dry, no erythema, no rash. [] Back: No bony spinal tenderness, bilateral paraspinal lumbar tenderness with palpation normal range of motion, negative straight leg raise. Extremities: No tenderness, no cyanosis, no clubbing, ROM intact, no edema. [] R. foot: ROM intact, neuro intact Neurologic: Alert and oriented X 3, normal motor function, normal sensory function, no focal deficits noted. [] Psychologic: Affect normal, judgement normal, mood normal. [] Current Patient Data: Vital Signs: Vital Signs Date Time Temp Pulse Resp B/P (MAP) Pulse Ox O2 Delivery O2 Flow Rate FiO2 09/11/21 10:08 95 18 135/81 (99) 98 EKG: EKG: [] Radiology/Procedures: Radiology/Procedures: []PROCEDURE: CT LUMBAR SPINE WO CONTRAST PQRS Compliance Statement: One or more of the following individualized dose reduction techniques were utilized for this examination: 1. Automated exposure control 2. Adjustment of the mA and/or kV according to patient size 3. Use of iterative reconstruction technique CT LUMBAR SPINE WO 09/11/2021 10:18 AM Indication: Low back pain COMPARISON: None available. TECHNIQUE: Multiple axial CT images of the lumbar spine were obtained with intravenous contrast. Coronal and sagittal reformats are provided. FINDINGS: Alignment of the lumbar spine is normal. Vertebral body heights are maintained. No lytic or blastic osseous lesion is identified. No acute fracture. No spondylolysis or spondylolisthesis. Disc heights are maintained. No significant disc herniation, neuroforaminal or spinal canal stenosis. Abdominal aorta is normal in caliber. No suspicious retroperitoneal abnormality is identified. IMPRESSION: No acute fracture or malalignment of the lumbar spine. Electronically signed by: Shanell You MD (09/11/2021 10:47 AM) [id number] DICTATED AND SIGNED BY: SHANELL YOU MD DATE: 09/11/21 1039 CC: HAZEL HERNDON; CARLA VERONICA [employer] ~ Heart Score: C/O Chest Pain: N/A Risk Factors: Risk Factors: DM, Current or recent (<one month) smoker, HTN, HLP, family history of CAD, obesity. Risk Scores: Score 0 - 3: 2.5% MACE over next 6 weeks - Discharge Home Score 4 - 6: 20.3% MACE over next 6 weeks - Admit for Clinical Observation Score 7 - 10: 72.7% MACE over next 6 weeks - Early Invasive Strategies Course & Med Decision Making: Course & Med Decision Making Pertinent Labs and Imaging studies reviewed. (See chart for details) [] Patient presents to the emergency department for bilateral low back pain that radiates down his right leg with a history of chronic back pain. Patient does report occasional tingling in his right foot therefore CT imaging of his lumbar spine was performed. Patient treated with anti-inflammatory medications and a muscle relaxer. CT imaging did not show any acute fracture. Patient reports that his pain has improved following treatment. He denies any loss of bowel/bladder, loss of sensation in groin, no evidence of foot drop. He will be discharged with muscle relaxers and advised to take anti-inflammatory medications and follow up with his pcp for outpatient MRI. I discussed with patient all findings and diagnostic testing as well as the need to follow-up with PCP for further evaluation and treatment or return to the ER if any new or worsening symptoms. Strict return precautions were also discussed at length. Patient voiced understanding and agreement with the plan. Patient is hemodynamically stable at the time of disposition. Dragon Disclaimer: Maribel Disclaimer: This electronic medical record was generated, in whole or in part, using a voice recognition dictation system. Departure Departure: Impression: Primary Impression: Back pain Qualified Codes: M54.41 - Lumbago with sciatica, right side; G89.29 - Other chronic pain Disposition: HOME / SELF CARE / HOMELESS Condition: GOOD Referrals: HAZEL HERNDON (PCP) Patient Instructions: Back Pain, Adult Additional Instructions: You were seen in the emergency department today for back pain. As we discussed, does not appear that you had a this time. Please take anti-inflammatory medications like ibuprofen or naproxen. You are being discharged home with a muscle relaxer. This medication may cause sedation so do not take he needs to be alert, driving a vehicle or alcohol. You will need to follow-up with your primary care provider to obtain an outpatient MRI. Please contact your primary care provider Sunday to set up a follow-up appointment. Return to the emergency department if you develop any injuries, worsening of your pain, inability to bear weight or walk, loss of sensation in your groin, loss of bowel or bladder. Scripts Cyclobenzaprine Hcl (CYCLOBENZAPRINE HCL) 5 Mg Tablet 1 TAB PO TID for muscle spasm for 7 Days, #21 TAB 0 Refills Prov: CARLA VERONICA APRN 09/11/21 CARLA VERONICA APRN September 11, 2021 10:26
--- NOTE | 2021-09-11 10:49 | RAD ---
PQRS Compliance Statement: One or more of the following individualized dose reduction techniques were utilized for this examinat ion: 1. Automated exposure control 2. Adjustment of the mA and/or kV according to patient size 3. Use of iterative reconstruction technique CT LUMBAR SPINE WO 09/11/2021 10:18 AM Indication: Low back pain COMPARISON: None available. TECHNIQUE: Multiple axial CT images of the lumbar spine were obtained with intravenous contrast. Simon nal and sagittal reformats are provided. FINDINGS: Alignment of the lumbar spine is normal. Vertebral body heights are maintained. No lytic or blastic o sseous lesion is identified. No acute fracture. No spondylolysis or spondylolisthesis. Disc heights a re maintained. No significant disc herniation, neuroforaminal or spinal canal stenosis. Abdominal aor ta is normal in caliber. No suspicious retroperitoneal abnormality is identified. IMPRESSION: No acute fracture or malalignment of the lumbar spine. Electronically signed by: Rosa Isela You MD (09/11/2021 10:47 AM) [id number]
[2021-09-11] MEDS ORDERED: CYCL5TAB PO (11:02)
== END 2021-09-11 11:16 | disposition home or self-care (01) ==
LOC: ER 09:56
DX: M54.41 Lumbago with sciatica, right side (principal); G89.29 Other chronic pain; F17.210 Nicotine dependence, cigarettes, uncomplicated
CPT/HCPCS: 72131; 96372; 99284; J1885; J2360